=== PATIENT | male | born 1975 | race Hispanic/Latino ===

== ENCOUNTER 2019-09-02 08:44 | Day surgery (SDC) | payer OTHER ==
[~2019-09-02] VITALS: Ht 170.2 cm; Wt 98.4 kg
[~2019-09-02 08:44] MED LIST: LIDOCAINE 2% INJ 100 MG/5 ML SDV (FOR ANES.) As Ordered ONE; NORV5TAB PO; NS 1,000 ML IV ONE; PROPOFOL 200 MG/20 ML VIAL As Ordered ONE
--- NOTE | 2019-09-02 10:15 | ROOR ---
Patient Name: Valente Sanchez Procedure Date: 09/02/2019 10:01 AM Date of : 1975 Age: 43 Room: [facility] Gender: Male Note Status: Finalized Procedure: Upper Endoscopy + Biopsies Indications: Abdominal bloating, Nausea Providers: Tayo Lou MD Referring MD: NAZANIN BREWER MD Requesting Provider: Medicines: Monitored Anesthesia Care Complications: No immediate complications. Procedure: Pre-Anesthesia Assessment: - The heart rate, respiratory rate, oxygen saturations, blood pressure, adequacy of pulmonary ventilation, and response to care were monitored throughout the procedure. The Endoscope was introduced through the mouth, and advanced to the second part of duodenum. The upper GI endoscopy was accomplished without difficulty. The patient tolerated the procedure well. Findings: The Z-line was regular and was found 40 cm from the incisors. Multiple biopsies were obtained with cold forceps for evaluation to rule out Barber's Esophagus randomly at the gastroesophageal junction. A small hiatal hernia was present. No other significant abnormalities were identified in a careful examination of the stomach. Multiple biopsies were obtained with cold forceps for Helicobacter pylori testing randomly in the gastric antrum. The exam of the duodenum was otherwise normal. Impression: - Z-line regular, 40 cm from the incisors. - Small hiatal hernia. - Multiple biopsies were obtained at the gastroesophageal junction. - Multiple biopsies were obtained in the gastric antrum. - The examination was otherwise normal. Recommendation: - Patient has a contact number available for emergencies. The signs and symptoms of potential delayed complications were discussed with the patient. Return to normal activities tomorrow. Written discharge instructions were provided to the patient. - High fiber diet. - Discharge patient to home. - Continue present medications. - Await pathology results. - Telephone GI clinic for pathology results in 1 week. - Return to referring physician. - Repeat upper endoscopy for surveillance based on pathology results. - The findings and recommendations were discussed with the patient's family. Tayo Lou MD Tayo Lou MD 09/02/2019 10:14:36 AM Electronically signed by Tayo Lou MD Number of Addenda: 0 Note Initiated On: 09/02/2019 10:01 AM Estimated Blood Loss: Estimated blood loss: none.
[2019-09-02] MEDS ORDERED: PROPOFOL 200 MG/20 ML VIAL As Ordered ONE (10:26)
--- NOTE | 2019-09-02 10:29 | ROOR ---
Patient Name: Valente Sanchez Procedure Date: 09/02/2019 10:02 AM Date of : 1975 Age: 43 Room: [facility] Gender: Male Note Status: Finalized Procedure: Total Colonoscopy to Cecum Indications: Rectal bleeding Providers: Tayo Lou MD Referring MD: NAZANIN BREWER MD Requesting Provider: Medicines: Monitored Anesthesia Care Complications: No immediate complications. Procedure: Pre-Anesthesia Assessment: - The heart rate, respiratory rate, oxygen saturations, blood pressure, adequacy of pulmonary ventilation, and response to care were monitored throughout the procedure. The Colonoscope was introduced through the anus and advanced to the cecum, identified by appendiceal orifice and ileocecal valve. The colonoscopy was performed without difficulty. The patient tolerated the procedure well. The quality of the bowel preparation was excellent. Findings: The perianal and digital rectal examinations were normal. Non-bleeding internal hemorrhoids were found during retroflexion. The hemorrhoids were small and Grade I (internal hemorrhoids that do not prolapse). No other significant abnormalities were identified in a careful examination of the remainder of the colon. The exam was otherwise without abnormality on direct and retroflexion views. Impression: - Non-bleeding internal hemorrhoids. - The examination was otherwise normal on direct and retroflexion views. - No specimens collected. - The exam was otherwise normal to the cecum. Recommendation: - Patient has a contact number available for emergencies. The signs and symptoms of potential delayed complications were discussed with the patient. Return to normal activities tomorrow. Written discharge instructions were provided to the patient. - High fiber diet. - Discharge patient to home. - Continue present medications. - Repeat colonoscopy in 10 years for screening purposes. - Return to referring physician. - The findings and recommendations were discussed with the patient's family. Tayo Lou MD Tayo Lou MD 09/02/2019 10:29:33 AM Electronically signed by Tayo Lou MD Number of Addenda: 0 Note Initiated On: 09/02/2019 10:02 AM Estimated Blood Loss: Estimated blood loss: none.
[2019-09-02 11:00] VITALS: BP 185/113
== END 2019-09-02 11:08 | disposition home or self-care (01) ==
LOC: M OPP 08:44
PROVIDERS: ATTEND Internal Medicine Gastroenterology
DX: K64.0 First degree hemorrhoids (principal); K62.5 Hemorrhage of anus and rectum; K44.9 Diaphragmatic hernia without obstruction or gangrene; R14.0 Abdominal distension (gaseous); R11.0 Nausea; G47.30 Sleep apnea, unspecified; I48.91 Unspecified atrial fibrillation; Z79.899 Other long term (current) drug therapy; Z88.0 Allergy status to penicillin

== ENCOUNTER 2022-11-26 19:11 | Emergency (ER) | payer OTHER ==
[~2022-11-26] VITALS: Ht 172.7 cm; Wt 103.3 kg
[~2022-11-26 19:11] MED LIST changes: -LIDOCAINE 2% INJ 100 MG/5 ML SDV (FOR ANES.) As Ordered ONE; -NS 1,000 ML IV ONE; -PROPOFOL 200 MG/20 ML VIAL As Ordered ONE
[2022-11-26] MEDS ORDERED: HYDR12.55 PO (19:26)
[2022-11-26] MEDS ORDERED: BENA20TA PO (19:26)
[2022-11-26] MEDS ORDERED: NS 1,000 ML IV ONE ×2 (19:50→22:45)
[2022-11-26] MEDS ORDERED: KETOROLAC 30 MG/ML 1ML VIAL IV ONE (19:50)
[2022-11-26] MEDS ORDERED: DICYCLOMINE 10 MG CAP PO ONE (19:50)
[2022-11-26 20:28] LABS: BASO % 0.4 % (0.0-1.0); EOS # 0.1 10^3/uL (0.0-0.5); EOS % 0.9 % (0.0-3.0); HEMATOCRIT 46.4 % (42.0-52.0); HEMOGLOBIN 15.7 g/dl (13.5-17.5); LYMPH # 1.6 10^3/uL (1.5-5.0); LYMPH % 15.2 % (24.0-44.0); MEAN CORPUSCULAR HEMOGLOBIN 29.5 pg (27.0-33.0); MEAN CORPUSCULAR HGB CONC 33.8 g/dl (32.0-36.5); MEAN CORPUSCULAR VOLUME 87.2 fl (80.0-96.0); MONO # 0.9 10^3/uL (0.0-0.8); MONO % 8.6 % (2.0-8.0); NEUTROPHILS % 74.7 % (36.0-66.0); PLATELET COUNT, AUTOMATED 294 10^3/uL (150-450); RED BLOOD COUNT 5.32 10^6/uL (4.30-6.10); WHITE BLOOD COUNT 10.7 10^3/uL (4.0-10.0)
[2022-11-26] MEDS ORDERED: ISOVUE-370 76% 100ML VIAL As Ordered ONE (20:52)
[2022-11-26 20:53] LABS: ALBUMIN 4.1 G/DL (3.2-5.2); BILIRUBIN,DIRECT 0.2 MG/DL (<0.4); BILIRUBIN,TOTAL 0.9 MG/DL (0.3-1.2); TOTAL PROTEIN 7.5 G/DL (5.7-8.2)
[2022-11-26] MEDS ORDERED: HYDR-3713 PO (23:57)
[2022-11-26] MEDS ORDERED: ONDA4TAB6 PO (23:57)
[2022-11-27] MEDS ORDERED: NORCO 5/325MG TABLET (HOME DOSE PACK) PO ONE (00:25)
[2022-11-27 00:58] VITALS: BP 118/62
== END 2022-11-27 01:01 | disposition home or self-care (01) ==
LOC: M ED 19:11
DX: K85.90 Acute pancreatitis without necrosis or infection, unspecified (principal); I10 Essential (primary) hypertension; G47.33 Obstructive sleep apnea (adult) (pediatric); Z86.79 Personal history of other diseases of the circulatory system; Z79.83 Long term (current) use of bisphosphonates; Z79.811 Long term (current) use of aromatase inhibitors; Z79.899 Other long term (current) drug therapy
CPT/HCPCS: 74177; 80047; 80076; 81001; 83690; 85025; 96361; 96374; 99284; J1885

== ENCOUNTER 2023-10-31 06:49 | Emergency (ER) | payer OTHER ==
[~2023-10-31] VITALS: Ht 172.7 cm; Wt 103.8 kg
[~2023-10-31 06:49] MED LIST changes: +BENA20TA PO; +HYDR-3713 PO; +HYDR12.55 PO; +ONDA4TAB6 PO
[2023-10-31 07:34] LABS: BASO % 0.3 % (0.0-1.0); EOS # 0.2 10^3/uL (0.0-0.5); EOS % 2.1 % (0.0-3.0); HEMATOCRIT 45.1 % (42.0-52.0); HEMOGLOBIN 15.8 g/dl (13.5-17.5); LYMPH # 1.6 10^3/uL (1.5-5.0); LYMPH % 22.5 % (24.0-44.0); MEAN CORPUSCULAR HEMOGLOBIN 30.2 pg (27.0-33.0); MEAN CORPUSCULAR VOLUME 86.1 fl (80.0-96.0); MONO # 0.5 10^3/uL (0.0-0.8); MONO % 7.1 % (2.0-8.0); NEUTROPHILS # 4.8 10^3/uL (1.5-8.5); NEUTROPHILS % 67.9 % (36.0-66.0); PLATELET COUNT, AUTOMATED 235 10^3/uL (150-450); RED BLOOD COUNT 5.24 10^6/uL (4.30-6.10); WHITE BLOOD COUNT 7.1 10^3/uL (4.0-10.0)
[2023-10-31] MEDS ORDERED: ISOVUE-370 76% 100ML VIAL As Ordered ONE (07:43)
[2023-10-31] MEDS: ONDANSETRON 4MG 2ML VIAL IV ONE (07:44)
[2023-10-31] MEDS: NS 1,000 ML IV ONE (07:44)
[2023-10-31] MEDS: KETOROLAC 30 MG/ML 1ML VIAL IV ONE (07:45)
[2023-10-31 08:02] LABS: BILIRUBIN,DIRECT 0.2 MG/DL (<0.4); BILIRUBIN,TOTAL 0.8 MG/DL (0.3-1.2); TOTAL PROTEIN 7.5 G/DL (5.7-8.2)
[2023-10-31] MEDS ORDERED: ONDA4TAB6 PO (09:36)
[2023-10-31] MEDS ORDERED: HYDR-3713 PO (09:36)
[2023-10-31 10:11] VITALS: BP 156/95; TEMP 97.1; O2SAT 100
== END 2023-10-31 10:16 | disposition home or self-care (01) ==
LOC: M ED 06:49
DX: K85.90 Acute pancreatitis without necrosis or infection, unspecified (principal); I10 Essential (primary) hypertension; F10.10 Alcohol abuse, uncomplicated; Z86.79 Personal history of other diseases of the circulatory system; Z79.83 Long term (current) use of bisphosphonates; Z79.1 Long term (current) use of non-steroidal anti-inflammatories (NSAID); Z79.899 Other long term (current) drug therapy
CPT/HCPCS: 74177; 80047; 80076; 83690; 85025; 96361; 96374; 96375; 99284; J1885; J2405; Q9967

== ENCOUNTER 2023-11-22 21:18 | Emergency (ER) | payer OTHER ==
[~2023-11-22] VITALS: Ht 170.2 cm; Wt 103.4 kg
[2023-11-22 21:19] VITALS: TEMP 97.3
[2023-11-23] MEDS: ONDANSETRON 4MG 2ML VIAL IV ONE (00:27)
[2023-11-23] MEDS: NS 1,000 ML IV ONE (00:27)
[2023-11-23] MEDS: MORPHINE 4 MG/ML 1ML VIAL IV ONE (00:28)
[2023-11-23 00:39] LABS: BASO % 0.5 % (0.0-1.0); EOS # 0.2 10^3/uL (0.0-0.5); EOS % 2.5 % (0.0-3.0); HEMOGLOBIN 15.3 g/dl (13.5-17.5); LYMPH # 2.5 10^3/uL (1.5-5.0); LYMPH % 32.6 % (24.0-44.0); MEAN CORPUSCULAR HEMOGLOBIN 30.1 pg (27.0-33.0); MEAN CORPUSCULAR HGB CONC 34.8 g/dl (32.0-36.5); MEAN CORPUSCULAR VOLUME 86.4 fl (80.0-96.0); MONO # 0.7 10^3/uL (0.0-0.8); MONO % 8.5 % (2.0-8.0); NEUTROPHILS # 4.2 10^3/uL (1.5-8.5); NEUTROPHILS % 55.6 % (36.0-66.0); PLATELET COUNT, AUTOMATED 290 10^3/uL (150-450); RED BLOOD COUNT 5.09 10^6/uL (4.30-6.10); WHITE BLOOD COUNT 7.6 10^3/uL (4.0-10.0)
[2023-11-23 00:47] LABS: APPEARANCE, URINE CLEAR (CLEAR); BACTERIA, URINE AUTO NEGATIVE (NEGATIVE); BILIRUBIN, URINE AUTO NEGATIVE (NEGATIVE); BLOOD, URINE BLOOD NEGATIVE (NEGATIVE); COLOR, URINE YELLOW (YELLOW); GLUCOSE, URINE (UA) AUTO NEGATIVE (NEGATIVE); KETONE, URINE AUTO NEGATIVE (NEGATIVE); LEUKOCYTE ESTERASE, URINE AUTO NEGATIVE (NEGATIVE); MUCUS, URINE SMALL (NEGATIVE); NITRITE, URINE AUTO NEGATIVE (NEGATIVE); PROTEIN, URINE AUTO NEGATIVE (NEGATIVE); RBC, URINE AUTO 0 /HPF (0-3); SPECIFIC GRAVITY URINE AUTO 1.019 (1.002-1.035); SQUAMOUS EPITHELIAL CELL UR AU 0 /HPF (0-6); UROBILINOGEN, URINE AUTO 0.2 mg/dL (0.0-2.0); WBC, URINE AUTO 1 /HPF (0-3)
[2023-11-23 01:11] LABS: ALKALINE PHOSPHATASE 64 U/L (46-116); ALT/SGPT 49 U/L (7.0-40); AST/SGOT 51 U/L (<34); BILIRUBIN,DIRECT 0.1 MG/DL (<0.4); BILIRUBIN,TOTAL 0.6 MG/DL (0.3-1.2); BLOOD UREA NITROGEN 11 MG/DL (9-23); CALCIUM LEVEL 8.3 MG/DL (8.5-10.1); CARBON DIOXIDE LEVEL 26 MMOL/L (20-31); CHLORIDE LEVEL 104 MMOL/L (98-107); CREATININE FOR GFR 0.76 MG/DL (0.70-1.30); GLOMERULAR FILTRATION RATE > 60.0 (>60); GLUCOSE, FASTING 85 MG/DL (60-100); LIPASE 46 U/L (12-53); POTASSIUM SERUM 5.7 MMOL/L (3.5-5.1); SODIUM LEVEL 136 MMOL/L (136-145); TOTAL PROTEIN 7.4 G/DL (5.7-8.2)
[2023-11-23] MEDS ORDERED: ISOVUE-370 76% 100ML VIAL As Ordered ONE (01:45)
[2023-11-23 04:00] VITALS: BP 108/70; O2SAT 97
[2023-11-23] MEDS ORDERED: TRAM50TA2 PO (04:29)
[2023-11-23] MEDS ORDERED: ONDA4TAB6 PO (04:29)
== END 2023-11-23 04:49 | disposition home or self-care (01) ==
LOC: M ED 21:18
DX: K86.1 Other chronic pancreatitis (principal); K57.30 Diverticulosis of large intestine without perforation or abscess without bleeding; R00.1 Bradycardia, unspecified; I10 Essential (primary) hypertension; G47.33 Obstructive sleep apnea (adult) (pediatric); Z79.83 Long term (current) use of bisphosphonates; Z79.891 Long term (current) use of opiate analgesic; Z79.899 Other long term (current) drug therapy
CPT/HCPCS: 74177; 80048; 80076; 81001; 83690; 85025; 93005; 96361; 96374; 96375; 99284; J2405; Q9967

== ENCOUNTER → 2024-03-28 | Outpatient (CLI) | payer OTHER ==
[~2024-03-28] MED LIST changes: +ONDA-282 PO; -ONDA4TAB6 PO; +TRAM50TA2 PO
== END ==
LOC: M RAD 07:26
PROVIDERS: ATTEND Internal Medicine Gastroenterology
DX: K85.90 Acute pancreatitis without necrosis or infection, unspecified (principal)

== ENCOUNTER 2024-05-28 10:33 | Day surgery (SDC) | payer OTHER ==
[~2024-05-28] VITALS: Ht 171.4 cm; Wt 96.7 kg
[~2024-05-28 10:33] MED LIST changes: +LIDOCAINE 2% 100MG/5ML SDV (FOR ANES.) As Ordered ONE; +propofoL 200 MG/20 ML VIAL As Ordered ONE
[2024-05-28] MEDS: NS 1,000 ML IV ONE (10:50)
[2024-05-28] MEDS ORDERED: fentaNYL 100 MCG/2 ML INJECTION As Ordered ONE (11:30)
[2024-05-28 12:32] VITALS: TEMP 97
[2024-05-28 12:57] VITALS: BP 147/79; O2SAT 98
== END 2024-05-28 13:04 | disposition home or self-care (01) ==
LOC: M OPP 10:33
PROVIDERS: ATTEND Internal Medicine Gastroenterology
DX: K57.32 Diverticulitis of large intestine without perforation or abscess without bleeding (principal); K64.8 Other hemorrhoids; K56.699 Other intestinal obstruction unspecified as to partial versus complete obstruction; R12 Heartburn; I48.91 Unspecified atrial fibrillation; G47.30 Sleep apnea, unspecified; Z99.89 Dependence on other enabling machines and devices; I10 Essential (primary) hypertension; Z79.891 Long term (current) use of opiate analgesic; Z79.899 Other long term (current) drug therapy
CPT/HCPCS: 43235; 45380; 88305; J3010

== ENCOUNTER → 2024-06-25 | Outpatient (CLI) | payer OTHER ==
[~2024-06-25] MED LIST changes: +GLUCAGON INJ 1MG VIAL As Ordered ONE; +ISOVUE-370 76% 100ML VIAL As Ordered ONE; -LIDOCAINE 2% 100MG/5ML SDV (FOR ANES.) As Ordered ONE; +NEULUMEX 0.1% SUSPENSION 450ML BOTTLE (FORMERLY VOLUMEN) As Ordered ONE; -propofoL 200 MG/20 ML VIAL As Ordered ONE
== END ==
LOC: M RAD 08:02
PROVIDERS: ATTEND Internal Medicine Gastroenterology
DX: K56.600 Partial intestinal obstruction, unspecified as to cause (principal); K50.018 Crohn's disease of small intestine with other complication; R93.3 Abnormal findings on diagnostic imaging of other parts of digestive tract; K76.0 Fatty (change of) liver, not elsewhere classified
CPT/HCPCS: 74177; J1610; Q9967

== ENCOUNTER 2024-09-15 19:11 | Emergency (ER) | payer OTHER ==
[~2024-09-15] VITALS: Ht 172.7 cm; Wt 99.8 kg
[~2024-09-15 19:11] MED LIST changes: -GLUCAGON INJ 1MG VIAL As Ordered ONE; -ISOVUE-370 76% 100ML VIAL As Ordered ONE; -NEULUMEX 0.1% SUSPENSION 450ML BOTTLE (FORMERLY VOLUMEN) As Ordered ONE
[2024-09-16] MEDS: KETOROLAC TROMETHAMINE 10 MG TAB PO ONE (00:02)
[2024-09-16] MEDS: methocarbamoL 750 MG TAB PO ONE (00:02)
[2024-09-16] MEDS ORDERED: KETO10TAB PO (01:52)
[2024-09-16] MEDS ORDERED: METH-1165 PO (01:52)
[2024-09-16 02:07] VITALS: BP 131/80; TEMP 97.8; O2SAT 97
== END 2024-09-16 02:09 | disposition home or self-care (01) ==
LOC: M ED 19:11
DX: S32.018A Other fracture of first lumbar vertebra, initial encounter for closed fracture (principal); S32.028A Other fracture of second lumbar vertebra, initial encounter for closed fracture; S20.219A Contusion of unspecified front wall of thorax, initial encounter; W10.9XXA Fall (on) (from) unspecified stairs and steps, initial encounter; Y92.009 Unspecified place in unspecified non-institutional (private) residence as the place of occurrence of the external cause; Y93.89 Activity, other specified; Y99.9 Unspecified external cause status; I48.91 Unspecified atrial fibrillation; Z79.899 Other long term (current) drug therapy

== ENCOUNTER → 2024-12-16 | Outpatient (CLI) | payer OTHER ==
[~2024-12-16] MED LIST changes: +KETO10TAB PO; +METH-1165 PO
== END ==
LOC: M RAD 06:09
PROVIDERS: ATTEND Neurological Surgery
DX: M25.572 Pain in left ankle and joints of left foot (principal)

== ENCOUNTER 2025-04-09 08:59 | Observation (INO) | payer OTHER ==
[~2025-04-09] VITALS: Ht 172.7 cm; Wt 99.2 kg
[2025-04-09] MEDS ORDERED: ISOVUE-370 76% 100 ML VIAL As Ordered ONE (09:33)
[2025-04-09 09:55] LABS: BASO # 0.0 10^3/uL (0.0-0.2); BASO % 0.4 % (0.0-1.0); EOS # 0.1 10^3/uL (0.0-0.5); EOS % 1.5 % (0.0-3.0); LYMPH # 1.4 10^3/uL (1.5-5.0); LYMPH % 26.6 % (24.0-44.0); MONO # 0.5 10^3/uL (0.0-0.8); MONO % 9.2 % (2.0-8.0); NEUTROPHILS # 3.3 10^3/uL (1.5-8.5); NEUTROPHILS % 61.9 % (36.0-66.0); PLATELET COUNT, AUTOMATED 277 10^3/uL (150-450)
[2025-04-09 10:07] LABS: INR 0.87
[2025-04-09 10:19] LABS: CPK CREATINE PHOSPHOKINASE 87 U/L (46-171)
[2025-04-09 10:20] LABS: ALT/SGPT 45 U/L (7.0-40); AST/SGOT 20 U/L (<34); CALCIUM LEVEL 9.3 MG/DL (8.5-10.1); CARBON DIOXIDE LEVEL 24 MMOL/L (20-31); CHLORIDE LEVEL 104 MMOL/L (98-107); CREATININE FOR GFR 0.75 MG/DL (0.70-1.30); GLOMERULAR FILTRATION RATE > 90.0 (>56); POTASSIUM SERUM 4.3 MMOL/L (3.5-5.1); SODIUM LEVEL 140 MMOL/L (136-145)
[2025-04-09 10:21] LABS: CK-MB VALUE MASS < 1.0 NG/ML (<3.6)
[2025-04-09] MEDS ORDERED: HOME MED LIST COMPLETE! XX SCH (11:45)
[2025-04-09] MEDS ORDERED: ATOR1TAB21 PO (11:45)
[2025-04-09 16:22] LABS: MAGNESIUM LEVEL 2.1 MG/DL (1.8-2.4)
[2025-04-09] MEDS: ATORVASTATIN 20 MG TAB PO SCH (16:26)
[2025-04-09 16:32] LABS: ESTIMATED AVERAGE GLUCOSE 111.0 MG/DL (60-110)
[2025-04-09 21:50] VITALS: BP 125/83; TEMP 97.6; O2SAT 97
[2025-04-09 23:56] VITALS: BP 132/73; TEMP 98.5; O2SAT 98
[2025-04-10] VITALS (7 sets, daily range): BP systolic 124–136; BP diastolic 77–84; TEMP 97–97.4; O2SAT 97
[2025-04-10] MEDS: ACETAMINOPHEN 500 MG TAB PO ONE (00:39)
[2025-04-10 05:32] LABS: PLATELET COUNT, AUTOMATED 244 10^3/uL (150-450)
[2025-04-10 06:13] LABS: ALT/SGPT 36 U/L (7.0-40); AST/SGOT 17 U/L (<34); CALCIUM LEVEL 9.0 MG/DL (8.5-10.1); CARBON DIOXIDE LEVEL 26 MMOL/L (20-31); CHLORIDE LEVEL 103 MMOL/L (98-107); CHOLESTEROL LEVEL 215 MG/DL (<200); CHOLESTEROL RISK RATIO 7.43 (<5); CREATININE FOR GFR 0.85 MG/DL (0.70-1.30); GLOMERULAR FILTRATION RATE > 90.0 (>56); LDL CHOLESTEROL 108.3 MG/DL (<100); MAGNESIUM LEVEL 2.1 MG/DL (1.8-2.4); NON-HDL-C 186.1 MG/DL; POTASSIUM SERUM 4.3 MMOL/L (3.5-5.1); SODIUM LEVEL 139 MMOL/L (136-145); TRIGLYCERIDES LEVEL 389 MG/DL (<150)
[2025-04-10] MEDS: CLOPIDOGREL 75 MG TAB PO SCH (10:01)
[2025-04-10] MEDS: BENAZEPRIL 20 MG TAB PO SCH (10:01)
[2025-04-10] MEDS: ASPIRIN 81 MG CHEWABLE TABLET PO SCH (10:02)
[2025-04-10] MEDS ORDERED: ATOR1TAB21 PO (14:26)
[2025-04-10] MEDS ORDERED: ASPI81CH8 PO (14:26)
== END 2025-04-10 15:58 | disposition home or self-care (01) ==
LOC: M ED 08:59 → M ED INP 09:00 → M PCU 21:42
PROVIDERS: ADMIT Family Medicine; ATTEND Family Medicine
DX: G45.9 Transient cerebral ischemic attack, unspecified (principal); G43.109 Migraine with aura, not intractable, without status migrainosus; G56.03 Carpal tunnel syndrome, bilateral upper limbs; R00.1 Bradycardia, unspecified; E78.2 Mixed hyperlipidemia; G47.33 Obstructive sleep apnea (adult) (pediatric); I10 Essential (primary) hypertension; R29.810 Facial weakness; R20.2 Paresthesia of skin; R20.0 Anesthesia of skin; I48.91 Unspecified atrial fibrillation; Z98.890 Other specified postprocedural states; Z82.49 Family history of ischemic heart disease and other diseases of the circulatory system; Z87.19 Personal history of other diseases of the digestive system
CPT/HCPCS: 36415; 70450; 70496; 70498; 70544; 70551; 71045; 80047; 80048; 80053; 80061; 80076; 82550; 82553; 83036; 83735; 84443; 84484; 85025; 85027; 85610; 85730; 86850; 86900; 86901; 93005; 93041; 94760; 99285; Q9967

== ENCOUNTER 2025-07-31 05:48 | Emergency (ER) | payer OTHER ==
[~2025-07-31] VITALS: Ht 170.2 cm; Wt 95.9 kg
[~2025-07-31 05:48] MED LIST changes: +ASPI81CH8 PO; +ATOR1TAB21 PO
[2025-07-31 06:39] LABS: BASO # 0.0 10^3/uL (0.0-0.2); BASO % 0.6 % (0.0-1.0); EOS # 0.2 10^3/uL (0.0-0.5); EOS % 3.1 % (0.0-3.0); LYMPH # 1.8 10^3/uL (1.5-5.0); LYMPH % 35.1 % (24.0-44.0); MONO # 0.4 10^3/uL (0.0-0.8); MONO % 7.9 % (2.0-8.0); NEUTROPHILS # 2.8 10^3/uL (1.5-8.5); NEUTROPHILS % 53.1 % (36.0-66.0); PLATELET COUNT, AUTOMATED 304 10^3/uL (150-450)
[2025-07-31] MEDS: MORPHINE 4 MG/ML 1 ML VIAL IV ONE (06:43)
[2025-07-31] MEDS: PANTOPRAZOLE 40MG VIAL IV ONE (06:43)
[2025-07-31] MEDS ORDERED: ISOVUE-370 76% 100 ML VIAL As Ordered ONE (06:58)
[2025-07-31 07:10] LABS: ALT/SGPT 46 U/L (7.0-40); AST/SGOT 21 U/L (<34); CALCIUM LEVEL 9.2 MG/DL (8.5-10.1); CARBON DIOXIDE LEVEL 23 MMOL/L (20-31); CHLORIDE LEVEL 107 MMOL/L (98-107); CK-MB VALUE MASS 1.1 NG/ML (<3.6); CREATININE FOR GFR 0.82 MG/DL (0.70-1.30); GLOMERULAR FILTRATION RATE > 90.0 (>56); POTASSIUM SERUM 4.2 MMOL/L (3.5-5.1); SODIUM LEVEL 142 MMOL/L (136-145)
[2025-07-31 07:20] LABS: CPK CREATINE PHOSPHOKINASE 79 U/L (46-171); MB/CK RELATIVE INDEX 1.39 (< OR =4)
[2025-07-31] MEDS ORDERED: OMEP-173 PO (07:51)
[2025-07-31 08:00] VITALS: BP 143/85; TEMP 96.7; O2SAT 96
== END 2025-07-31 08:05 | disposition home or self-care (01) ==
LOC: M ED 05:48
DX: R10.32 Left lower quadrant pain (principal); K30 Functional dyspepsia; J98.11 Atelectasis; K76.0 Fatty (change of) liver, not elsewhere classified; K57.30 Diverticulosis of large intestine without perforation or abscess without bleeding; K40.20 Bilateral inguinal hernia, without obstruction or gangrene, not specified as recurrent; R16.0 Hepatomegaly, not elsewhere classified; K21.9 Gastro-esophageal reflux disease without esophagitis; E78.5 Hyperlipidemia, unspecified; G43.909 Migraine, unspecified, not intractable, without status migrainosus; F10.11 Alcohol abuse, in remission; Z86.79 Personal history of other diseases of the circulatory system; Z79.82 Long term (current) use of aspirin; Z79.02 Long term (current) use of antithrombotics/antiplatelets; Z79.899 Other long term (current) drug therapy
CPT/HCPCS: 74177; 80047; 80048; 80076; 82550; 82553; 83605; 83690; 84484; 85025; 93005; 93041; 96374; 99284; J2470; Q9967

== ENCOUNTER → 2025-09-04 | Outpatient (CLI) | payer OTHER ==
[~2025-09-04] MED LIST changes: +ACET-683 PO; +CIPR-249 PO; +IBUP600T42 PO; +METR375C3 PO; +OMEP-173 PO
[2025-09-04 07:20] VITALS: TEMP 98.6
[2025-09-04] MEDS: MIDAZOLAM INJ 2 MG/2 ML VIAL IV PRN (08:55)
[2025-09-04] MEDS: NS (Normal Saline) 0.9% 1,000 ML IV SCH (08:55)
[2025-09-04] MEDS: SODIUM CHLORIDE 0.9% 1000 ML XX SCH (08:55)
[2025-09-04] MEDS: ISOVUE-300 61% 100 ML VIAL IV SCH (08:55)
[2025-09-04] MEDS: LIDOCAINE 1% MDV 20 ML VIAL SC SCH (08:55)
[2025-09-04 09:00] VITALS: BP 132/82; O2SAT 97
== END ==
LOC: M IRPRO 07:02
PROVIDERS: ATTEND Radiology Diagnostic Radiology
DX: K65.1 Peritoneal abscess (principal)
CPT/HCPCS: 49405; 87070; 87075; 87076; 87102; 87205; 99152; 99153; J2250; J3010

== ENCOUNTER → 2025-09-15 | Outpatient (CLI) | payer OTHER ==
[~2025-09-15] MED LIST changes: +ISOVUE-370 76% 100 ML VIAL As Ordered ONE
== END ==
LOC: M RAD 16:16
PROVIDERS: ATTEND Radiology Diagnostic Radiology
DX: K37 Unspecified appendicitis (principal); Z90.49 Acquired absence of other specified parts of digestive tract; Z96.89 Presence of other specified functional implants
CPT/HCPCS: 74177; Q9967